=== PATIENT | female | born 1990 | race Two or more races ===

== ENCOUNTER 2017-12-08 07:19 | Outpatient (CLI) | payer OTHER | END 2017-12-08 07:38 | disposition home or self-care (01) | LOC: TOM 07:19 | DX: R51 Headache (principal) ==

== ENCOUNTER → 2018-12-27 | Outpatient (CLI) | payer OTHER | END | disposition home or self-care (01) | LOC: MAMO-SONO 09:45 → SONOGRAMA 10:38 | DX: N92.0 Excessive and frequent menstruation with regular cycle (principal) ==

== ENCOUNTER 2019-05-04 06:34 | Day surgery (SDC) | payer OTHER | END 2019-05-04 16:15 | disposition home or self-care (01) | LOC: CIR.AMB 06:34 | DX: N72 Inflammatory disease of cervix uteri (principal) ==

== ENCOUNTER 2024-05-03 19:17 | Emergency (ER) | payer OTHER ==
[~2024-05-03] VITALS: Ht 162.6 cm; Wt 81.6 kg
[2024-05-04 00:09] LABS: HEMATOCRIT 37.7 % (36.0-45.00); HEMOGLOBIN 12.8 g/dL (12.0-15.00); MEAN CELL VOLUME 83.4 fL (80.00-100.00); MEAN CORPUSCULAR HEMOGLOBIN 28.3 pg (27.00-32.0); MEAN CORPUSCULAR HGB CONC 33.9 g/dl (32.0-36.0); PLATELET COUNT 321 K/uL (150-450); RED BLOOD COUNT 4.52 M/uL (4.00-6.00); RED CELL DISTRIBUTION WIDTH 13.4 % (11.5-14.5)
[2024-05-04 00:20] LABS: PH,URINE 5.5 (5.0-8.0); URINE APPEARANCE Clear; URINE BILIRRUBIN Negative (NEGATIVE); URINE BLOOD Large; URINE COLOR Yellow; URINE GLUCOSE Negative (NEGATIVE); URINE KETONE Trace (NEGATIVE); URINE LEUKOCYTE Small; URINE NITRATE Negative; URINE PROTEIN 30 (NEGATIVE); URINE UROBILINOGEN 0.2 E.U./dl
[2024-05-04 00:23] LABS: URINE BACTERIA 726.9 uL (0.0-1933); URINE RBC 265.2 uL (0.0-20.8); URINE WBC 252.7 uL (0.0-23.2)
[2024-05-04] MEDS ORDERED: CEFAZOLIN SODIUM 1,000 MG VIAL IM STA (01:58)
== END 2024-05-04 02:07 | disposition home or self-care (01) ==
LOC: ER 19:18
PROVIDERS: Preventive Medicine Public Health & General Preventive Medicine
DX: N39.0 Urinary tract infection, site not specified (principal); Z87.09 Personal history of other diseases of the respiratory system